=== PATIENT | female | born 1990 | race Two or more races ===

== ENCOUNTER 2024-07-11 08:32 | Emergency (ER) | payer MEDICAID, SELFPAY ==
[2024-07-11 09:01] VITALS: BP 134/105; PULSE 94; RESP 18; TEMP 36.7; O2SAT 99; BMI 29.2
--- NOTE | 2024-07-11 09:03 | XR_ITS ---
Examination: CT brain head without contrast. 2-D sagittal coronal reconstructions Date and time of exam: July 11, 2024 1024 hours INDICATIONS: Onset dizziness syncopal episode today CTDI: vol (mGy):45.3 DLP: (mGycm):879 Technique: Multiple CT axial sections of the brain have been obtained, 5 mm slice thickness. Contrast has not been administered. 2-D sagittal, coronal reconstructions have been obtained Low dose protocols were performed. One or more of the following dose reduction techniques were used; automated exposure control, adjustment of the mA and/or KV according to patient size, use of iterative reconstruction technique. Findings: Mild ventricular asymmetry, more prominent right lateral ventricle, frontal horns 2 mm to the left of midline. Intra-axial or extra-axial hemorrhage density is not seen. No mass effect or midline shift Basal cisterns are not remarkable. Fourth ventricle is midline. Cranial vault intact. Impression: Mild ventricular asymmetry Recommend 1 month follow-up CT brain scan to document stability of this ventricular asymmetry
--- NOTE | 2024-07-11 09:03 | EKG_ITS ---
[facility] Test Date: 2024-07-11 Pat Name: JOVAN HAMM Department: Room: - Gender: Female [employer] Operator: : 1990 Requested By: Marco Silva Order Number: [id number] Reading MD: Marco Silva Measurements Intervals [place] Rate: 95 P: 45 MT: 147 QRS: 68 QRSD: 78 T: 0 QT: 324 QTc: 408 Interpretive Statements SINUS RHYTHM NONSPECIFIC T-WAVE ABNORMALITY No previous ECG available for comparison /store/S0/[id number]/ecg/[id number].pdf
--- NOTE | 2024-07-11 09:04 | EDRME_ITS ---
Rapid Medical Screening Exam [facility] Arrival date/time: 07/11/24 08:32 34-year-old female with no known medical history presents to the emergency room with a chief complaint of a syncopal episode that occurred this morning before going to work. Patient states she suddenly became dizzy and lightheaded and passed out. She is unsure if she hit her head but states her right shoulder hurts. I have greeted and performed a focused initial assessment of this patient. A comprehensive ED assessment and evaluation of the patient, analysis of all test results, and completion of the medical decision making process will be conducted by additional ED providers. Chief Complaint: Syncope / Near Syncope Vital signs: Vital Signs Temperature 98.0 F 07/11/24 09:01 Pulse Rate 94 07/11/24 09:01 Respiratory Rate 18 07/11/24 09:01 Blood Pressure 134/105 H 07/11/24 09:01 Pulse Oximetry (%) 99 07/11/24 09:01 Oxygen Delivery Method Room Air 07/11/24 09:01 Vital signs reviewed by provider: Yes
[2024-07-11] MEDS: MECLIZINE HCL 25 MG TABLET PO (09:10)
[2024-07-11 10:15] LABS: Collection Type, Urine Clean Catch; Squamous Epithelial Cell,Urine 0 /hpf (0-5)
[2024-07-11 10:25] LABS: Basophils % (Auto) 0 % (0-2.5); Eosinophils % (Auto) 1 % (0-10); Hematocrit 34.5 % (36.0-46.0); Hemoglobin 11.3 g/dL (12.0-16.0); Immature Granulocytes % (Auto) 0 % (0-0); Immature Granulocytes Auto 0.01 Thou/mm3 (0.00-0.00); Lymphocytes # (Auto) 0.8 Thou/mm3 (1.0-4.8); Lymphocytes % (Auto) 15 % (10-50); Mean Corpuscular HGB Conc 32.8 g/dl (31.0-37.0); Mean Corpuscular Hemoglobin 27.8 pg (25.0-35.0); Mean Corpuscular Volume 85 fL (80-100); Monocytes # (Auto) 0.4 Thou/mm3 (0.0-0.8); Monocytes % (Auto) 7 % (0-12); Neutrophils # (Auto) 4.2 Thou/mm3 (1.8-7.7); Neutrophils % (Auto) 77 % (37-80); Nucleated Red Blood Cell % 0 /100 WBC (0); Platelet Count 217 Thou/mm3 (140-440); RDW Standard Deviation 42.4 fL (36.4-46.3); Red Blood Count 4.06 Miln/mm3 (4.00-5.20); White Blood Count 5.5 Thou/mm3 (3.6-11.0)
[2024-07-11 10:38] LABS: Alanine Aminotransferase 19 U/L (10-49); Albumin, Serum 4.4 gm/dL (3.5-5.0); Albumin/Globulin Ratio 1.5 (1.2-2.2); Alkaline Phosphatase 60 U/L (46-116); Anion Gap 6 (7-16); Aspartate Amino Transferase 22 U/L (0-34); BUN/Creatinine Ratio 13 Ratio (12-20); Bilirubin,Total 0.4 mg/dL (0.3-1.2); Blood Urea Nitrogen 8 mg/dL (9-23); Calcium 9.1 mg/dL (8.3-10.6); Calcium (Corrected) 9.1 mg/dL (8.5-10.1); Carbon Dioxide 24.9 mMol/L (20.0-31.0); Chloride 108 mMol/L (98-107); Creatinine (Component) 0.6 mg/dL (0.6-1.3); Estimated Creatinine Clearance 126.8 mL/min (>60); Globulin 2.9 gm/dL (2.3-3.5); Glucose 96 mg/dL (74-106); Osmolality,Calculated 275 (275-295); Potassium 3.9 mMol/L (3.4-5.1); Sodium 139 mMol/L (136-145); Total Protein 7.3 gm/dL (5.7-8.2); Troponin I < 0.002 ng/mL (0.0-0.045); eGFR > 60 See Note
[2024-07-11 10:55] LABS: Bilirubin,Urine Negative (Negative); Blood,Urine 3+ (Negative); Clarity,Urine Turbid (Clear/Hazy); Color,Urine Yellow (Lt Yel-Yel); Glucose, Urine Negative (Negative); Ketones,Urine 1+ (Negative); Leukocyte Esterase,Urine Negative (Negative); Nitrite,Urine Negative (Negative); Protein,Urine 1+ (Neg - Trace); RBC,Urine 3823 /hpf (0-3); Specific Gravity,Urine 1.031 (1.001-1.035); WBC,Urine 18 /hpf (0-5)
[2024-07-11 10:56] LABS: HCG Qualitative,Urine Negative
[2024-07-11 11:06] VITALS: BP 113/78; BP 121/79; BP 123/89; PULSE 111; PULSE 72; PULSE 92
--- NOTE | 2024-07-11 11:43 | PD.EDADULT ---
ED General RME/HPI General Chief complaint: Syncope / Near Syncope Stated complaint: SYNCOPAL EPISODE Time Seen by Provider: 07/11/24 11:37 Arrival date/time: 07/11/24 08:32 CC: Syncope HPI patient was standing at the sink washing her cup when she forgot abrupt onset lightheadedness and dizziness. Patient has no other new circumstances no other family members are ill however the patient does state that she has an exceedingly heavy menses right now. No other complaints. Currently the patient is awake alert oriented not dizzy, or lightheaded. RME / HPI RME / HPI narrative: 07/11/24 08:32 34-year-old female with no known medical history presents to the emergency room with a chief complaint of a syncopal episode that occurred this morning before going to work. Patient states she suddenly became dizzy and lightheaded and passed out. She is unsure if she hit her head but states her right shoulder hurts. I have greeted and performed a focused initial assessment of this patient. A comprehensive ED assessment and evaluation of the patient, analysis of all test results, and completion of the medical decision making process will be conducted by additional ED providers. Related Data Home Medications ?Medication ?Instructions ?Recorded ?Confirmed Vitamin * 1 tab PO QDAY #0 tabs 11/12/14 Allergies Allergy/AdvReac Type Severity Reaction Status Date / Time No Known Allergies Allergy Verified 07/11/24 08:36 Review of Systems Review of Systems Narrative Review of Systems: GEN: No fever, no chills, no weight loss EYES: No discharge, no visual changes, no pain HEENT: No ear pain, no congestion, no sore throat PULM: No shortness of breath, no cough, no congestion CV: No chest pain, no dyspnea on exertion, no palpitations GI: No nausea, no vomiting, no diarrhea, no pain, no constipation : No frequency, no urgency, no dysuria MUSC/SKEL: No joint pain, no back pain SKIN: No rash PSYCH: No hallucinations, no depression HEME/LYMPH: No easy bleeding or bruising tendencies NEURO: No weakness, no headache Past Medical History Past Medical History OTHER HISTORY: Negative Blood Transfusions Social History SMOKING STATUS: Never smoker ED Exam Narrative Physical exam: [General: Not in any acute distress Head normocephalic HEENT: Within acceptable limits Neck is supple nontender Chest equal chest rise nontender to palpation Respiratory: Clear to auscultation no wheezes crackles or rubs CV: Rate rhythm is regular no murmurs rubs or clicks Abdomen is soft nontender no masses positive bowel sounds all 4 quadrants Back: No CVA tenderness no spinous process tenderness from cervical spine thoracic and lumbar spine Skin: Intact no petechiae rash induration ulceration or crepitus Extremities: Moving all extremity against resistance cap refill less than 2 seconds neurosensory intact Neuro: Awake alert oriented x3 Glascow coma 15 no focal deficits] Course Quality Measures none Orders Category Date Time Status EKG (ED ONLY) *Do not use* NOW Care 07/11/24 09:03 Completed Orthostatic Vitals NOW Care 07/11/24 09:[address] head/brain wo con Stat Exams 07/11/24 09:03 Completed EKG (ED Only) Stat Exams 07/11/24 09:03 Draft CBC Stat Lab 07/11/24 09:55 Completed Comprehensive Metabolic Panel Stat Lab 07/11/24 09:55 Completed HCG Qualitative,Urine Stat Lab 07/11/24 09:43 Completed Troponin I Stat Lab 07/11/24 09:55 Completed Urinalysis Stat Lab 07/11/24 09:43 Completed Urine Culture Stat Lab 07/11/24 09:47 Received Meclizine HCl [Antivert] Med 07/11/24 09:03 Discontinued 25 mg PO X1 ONE Vital Signs Vital signs: Vital Signs Temperature 98.0 F 07/11/24 09:01 Pulse Rate 94 07/11/24 09:01 Respiratory Rate 18 07/11/24 09:01 Blood Pressure 134/105 H 07/11/24 09:01 Pulse Oximetry (%) 99 07/11/24 09:01 Oxygen Delivery Method Room Air 07/11/24 09:01 [facility] Patient data External records reviewed:: [facility] previous records Clinical information provided by:: patient Social determinants that could affect healthcare access:: none Patient has the following chronic illnesses:: None How is presenting disease/condition affected by chronic disease/condition?: uneffected by Evaluation data The following diagnostics were reviewed and interpreted by me:: lab results, radiology exam(s) and EKG tracing(s) Lab and/or radiology exams considered but not ordered:: EKG performed at 907 shows a ventricular rate of 95 RI interval 147 QRS of 78 QTc of 377 there is normal sinus rhythm. CBC shows no acute leukocytosis anemia thrombocytopenia CMP shows no acute electrolyte imbalances renal impairment transaminitis or T. bili elevation CT of the head shows asymmetrical ventricles recommendation for follow-up CT in 1 month. Otherwise no acute finding requires emergent or immediate intervention. Troponin is negative BNP is negative Interpretation Summary: There is no significant negative outcome from the syncopal event I do not know what the causes however there could be a question of the psychology of severe heavy menses and/or vasovagal response patient will be discharged home. Medications Medications considered but not ordered:: None Medication administrations:: Medication Administration History Discontinued Medications Meclizine HCl (Meclizine Hcl 25 Mg Tablet) 25 mg PO X1 ONE Stop: 07/11/24 09:04 Last Admin: 07/11/24 09:10 Dose: 25 mg Documented By: [facility] None Consultations Consultation(s) initiated? (list below): No Diagnosis Differential Diagnosis ED Complaint MDM: Closed head injury neck fracture anemia electrolyte imbalance Most likely diagnosis given after review of the tests above:: Syncope Admission Indicated Admission indicated?: not indicated Explain why admission is indicated or not indicated:: Stable for discharge Admission Request Was there a request for admission?: No Disposition Plan Disposition Plan: Discharge Discharge Attestation Discharge Attestation: The patient and all family members were given an opportunity to ask questions and understood the discharge instructions. Discharge instructions specifically effects, indications for sooner follow up or return to the emergency department, and the expected course of current diagnosis. Patient condition: Stable Medical Decision Making Differential Diagnosis Differential Diagnosis: Closed head injury neck fracture anemia electrolyte imbalance Lab Data 07/11/24 09:55 07/11/24 09:55 Labs: Lab Results 07/11/24 07/11/24 Range/Units 09:43 09:55 WBC 5.5 (3.6-11.0) Thou/mm3 RBC 4.06 (4.00-5.20) Miln/mm3 Hgb 11.3 L (12.0-16.0) g/dL Hct 34.5 L (36.0-46.0) % MCV 85 (80-100) fL MCH 27.8 (25.0-35.0) pg MCHC 32.8 (31.0-37.0) g/dl RDW Std Deviation 42.4 (36.4-46.3) fL Plt Count 217 (140-440) Thou/mm3 Neut % (Auto) 77 (37-80) % Lymph % (Auto) 15 (10-50) % [place] % (Auto) 7 (0-12) % Eos % (Auto) 1 (0-10) % Baso % (Auto) 0 (0-2.5) % Neut # (Auto) 4.2 (1.8-7.7) Thou/mm3 Lymph # (Auto) 0.8 L (1.0-4.8) Thou/mm3 [place] # (Auto) 0.4 (0.0-0.8) Thou/mm3 Eos # (Auto) 0.0 (0.0-0.5) Thou/mm3 Baso # (Auto) 0.0 (0.0-0.2) Thou/mm3 Immature Gran # (Auto) 0.01 H (0.00-0.00) Thou/mm3 Absolute Nucleated RBC 0.00 (0.00-0.00) Thou/mm3 Immature Gran % 0 (0-0) % Nucleated RBC % 0 (0) /100 WBC Sodium 139 (136-145) mMol/L Potassium 3.9 (3.4-5.1) mMol/L Chloride 108 H (98-107) mMol/L Carbon Dioxide 24.9 (20.0-31.0) mMol/L Anion Gap 6 L (7-16) BUN 8 L (9-23) mg/dL Creatinine 0.6 (0.6-1.3) mg/dL Estim Creat Clear Calc 126.8 (>60) mL/min eGFR > 60 (60 - ) See Note BUN/Creatinine Ratio 13 (12-20) Ratio Glucose 96 (74-106) mg/dL Calculated Osmolality 275 (275-295) Calcium 9.1 (8.3-10.6) mg/dL Corrected Calcium 9.1 (8.5-10.1) mg/dL Total Bilirubin 0.4 (0.3-1.2) mg/dL AST 22 (0-34) U/L ALT 19 (10-49) U/L Alkaline Phosphatase 60 (46-116) U/L Troponin I < 0.002 (0.0-0.045) ng/mL Total Protein 7.3 (5.7-8.2) gm/dL Albumin 4.4 (3.5-5.0) gm/dL Globulin 2.9 (2.3-3.5) gm/dL Albumin/Globulin Ratio 1.5 (1.2-2.2) Ur Collection Type Clean Catch Urine Color Yellow (Lt Yel-Yel) Urine Clarity Turbid A (Clear/Hazy) Urine pH 6.0 (5.0-7.0) Ur Specific [place] 1.031 (1.001-1.035) Urine Protein 1+ A (Neg - Trace) Urine Glucose (UA) Negative (Negative) Urine Ketones 1+ A (Negative) Urine Blood 3+ A (Negative) Urine Nitrite Negative (Negative) Urine Bilirubin Negative (Negative) Urine Urobilinogen (Auto) 2.0 (0.0-1.0) mg/dL Ur Leukocyte Esterase Negative (Negative) Urine RBC 3823 H (0-3) /hpf Urine WBC 18 H (0-5) /hpf Ur Squamous Epith Cells 0 (0-5) /hpf Urine Bacteria None (None) Urine HCG, Qual Negative Discharge Plan Plan Patient Disposition: HOME (Self Care) Patient condition on transfer: Stable Prescriptions/Referrals Prescriptions/Med Rec: No Action Vitamin * 1 EACH tablet 1 tab PO QDAY Qty: 0 Referrals: Lima Tavares FNP (ARIACHL) [Primary Care Provider] - In 1 week Problem List Clinical Impression: Syncope Patient/Caregiver Discharge Instructions Education Materials: ED Fainting, Uncertain Cause Additional Instructions: If this event reoccurs follow-up with primary care doctor or return the emergency room. If you continue to have heavy menses consider follow-up with your primary care and referral to OB. Print Language: Italian Stand Alone Forms: Sandra Award Info., Patient Portal Info Letter, Work/School Release PA/PLATE MAKER Supervising Physician GWENDOLYN/ELIER Supervising Physician: Tyson Crandall ENP
== END 2024-07-11 11:58 | disposition home or self-care (01) ==
PROVIDERS: Nurse Practitioner Family; Emergency Provider Emergency Medicine; PCP Nurse Practitioner Primary Care
DX: R55 Syncope and collapse (principal); R94.31 Abnormal electrocardiogram [ECG] [EKG]
CPT/HCPCS: 36415; 70450; 80053; 81001; 81025; 84484; 85025; 87086; 93005; 99284; A9270